=== PATIENT | female | born 1960 ===

== ENCOUNTER → 2020-06-12 | Outpatient (CLI) | payer BC ==
--- NOTE | 2020-06-12 19:31 | US ---
EXAMINATION TYPE: US pelvic complete DATE OF EXAM: 06/12/2020 COMPARISON: NONE CLINICAL HISTORY: N92.0 Menorrhagia. early menopause [id number], new onset of bleeding this weekend. TECHNIQUE: TA. Transabdominal sonographic images of the pelvis were acquired. Date of LMP: 15+ yrs ago EXAM MEASUREMENTS: Uterus: 8.7 x 4.5 x 4.2 cm Endometrial Stripe: 1.3 cm Right Ovary: not seen Left Ovary: not seen 1. Uterus: Anteverted wnl 2. Endometrium: thickened 3. Right Ovary: Obscured by overlying bowel gas 4. Left Ovary: Obscured by overlying bowel gas 5. Bilateral Adnexa: wnl 6. Posterior cul-de-sac: wnl IMPRESSION: 1. Endometrial stripe 1.3 cm.
== END | disposition home or self-care (01) ==
LOC: RADUSWWP 16:09
PROVIDERS: ATTEND Family Medicine
DX: N92.0 Excessive and frequent menstruation with regular cycle (principal)
CPT/HCPCS: 76856

== ENCOUNTER → 2021-08-02 | Outpatient (CLI) | payer BC ==
[2021-08-02 13:16] LABS: INR 0.9 (<1.2); Prothrombin Time 9.9 sec (9.0-12.0)
[2021-08-02 19:01] LABS: Basophils % (A) 0.7 %; Eosinophils # (A) 0.35 X 10*3/uL (0.04-0.35); Eosinophils % (A) 2.6 %; HCT 44.1 % (37.2-46.3); Lymphocytes # (A) 3.86 X 10*3/uL (0.90-5.00); Lymphocytes % (A) 28.8 %; MCH 27.7 pg (27.0-32.0); MCHC 31.7 g/dL (32.0-37.0); MCV 87.3 fL (80.0-97.0); Mean Platelet Volume 12.4 fL (9.5-12.2); Monocytes # (A) 0.99 X 10*3/uL (0.20-1.00); Monocytes % (A) 7.4 %; Neutrophils # (A) 8.05 X 10*3/uL (1.80-7.70); Neutrophils % (A) 60.1 %; Platelet Count 353 X 10*3/uL (140-440); RBC 5.05 X 10*6/uL (4.10-5.20); RDW 15.3 % (11.5-14.5); WBC 13.41 X 10*3/uL (4.50-10.00)
[2021-08-02 19:59] LABS: Hemoglobin A1C 6.3 % (4.0-6.0)
[2021-08-02 20:15] LABS: Erythrocyte Sedimentation Rate 13 mm/Hr (0-30)
[2021-08-02 22:50] LABS: African American GFR (CKD) 92.9 (60.0-200.0); Albumin 4.4 g/dL (3.80-4.90); Anion Gap 8.9 mmol/L (4.00-12.00); BUN/Creat Ratio 23.75 Ratio (12.00-20.00); Calcium 9.1 mg/dL (8.7-10.3); Carbon Dioxide 25.1 mmol/L (21.6-31.8); Globulin 2.2 g/dL (1.6-3.3); Non-African American GFR(CKD) 80.1 (60.0-200.0); Potassium 4.7 mmol/L (3.5-5.5); Total Bilirubin 0.3 mg/dL (0.3-1.2); Total Protein 6.6 g/dL (6.2-8.2)
[2021-08-02 22:58] LABS: T4, Free (Free Thyroxine) 1.4 ng/dL (0.80-1.80)
== END | disposition home or self-care (01) ==
LOC: LABWHC1 11:36
PROVIDERS: ATTEND Family Medicine
DX: R53.81 Other malaise (principal); R59.0 Localized enlarged lymph nodes; E11.9 Type 2 diabetes mellitus without complications; T50.Z95A Adverse effect of other vaccines and biological substances, initial encounter
CPT/HCPCS: 36415; 80053; 82306; 82607; 83036; 84439; 84443; 85025; 85379; 85610; 85652; 85730